=== PATIENT | male | born 1980 | race Hispanic/Latino ===

== ENCOUNTER 2022-10-03 08:07 | Emergency (ER) | payer SELFPAY ==
--- OUTSIDE RECORDS SUMMARY | 2022-10-03 08:10 | XMS REPORT | Continuity of Care Document ---
:1980 Author Organization [facility] t Address [address] [place] [id number] Care Team Providers Name Role Phone Virgil Perry MD Attending Clinician VIRGIL PERRY Attending Clinician Unavailable Problems Condition Condition Condition Status Onset Resolution Last Treating Co mments Source Name Details Category Date Date Treatment Clinician Date No known No known Disease Unive rs active active ity of problems problems [facility] Allergies, Adverse Reactions, Alerts Allergy Allergy Status Severity Reaction(s) Onset Inactive Treating Comm ents Source Name Type Date Date Clinician NO KNOWN Drug Active Univers ALLERGIE Class ity of S [facility] Social History Social Habit Start Date Stop Date Quantity Comments Source Sex Assigned At Uni versity [facility] Exposure to SARS-CoV-2 Not sure [facility] [place] (event) [facility] Smoking Status Start Date Stop Date Source Unknown if ever smoked Universit y [facility] Medications Ordered Filled Start Stop Current Ordering Indication Dosage Frequency Signature Comments Components Source Medication Medication Date Date Medication? Clinician (SIG) Name Name ondansetron 2019-05 2020- No 4mg 4 mg, Slow Univers (ZOFRAN 002-27 IV Push, ity of (PF)) 05:30: 04:27 ONCE, 1 [place] injection 4 00 :00 dose, Fri Med ical mg 02/28/20 at [facility] 0030, ZEENAT morpHINE 2019-05 2020- No 4mg 4 mg, Slow Un miriam injection 4 0-02 - IV Push, ity of mg 05:30: 04:27 ONCE, 1 [place] 00 :00 dose, Fri Medical 02/28/20 at [facility] 0030, STAT iohexol 2019-05 2020- No 100mL 100 mL, Unive rs (OMNIPAQUE 0-02 10- Intravenou it y of 350 05:17: 05:17 s, ONCE, 1 BULK-100 00 :00 dose, Fri Medica l mL) 02/28/20 at [facility] injection 0030, 100 mL Routine NaCl 0.9% 2019-05 1000mL at 999 Uni vers (NS) bolus 0-02 10-02 mL/hr, ity of infusion 04:30: 06:04 1,000 mL, Himanshu as 1,000 mL 00 :00 IV Medical Infusion, [place] ONCE, 1 dose, Yamilka 02/27/20 at 2330, ZEENAT ciprofloxac 2019-05 Yes [id number] 500mg Take 1 Univers in HCl 500 0-02 tablet by ity of mg tablet 00:00: mouth 2 00 (two) Medical times [place] daily. Vital Signs Vital Name Observation Time Observation Value Comments Source Systolic blood 2020-02-28 06:06:42 146 mm[Hg] [facility] Diastolic blood 2020-02-28 06:06:42 99 mm[Hg] [facility] Heart rate 2020-02-28 06:06:42 94 /min [facility] Respiratory rate 2020-02-28 06:06:42 20 /min [facility] Oxygen saturation in 2020-02-28 06:06:42 98 /min [facility] Arterial blood by [facility] Pulse oximetry [place] Body temperature 2020-02-28 03:57:00 37.28 Neelam [facility] Body weight 2020-02-28 03:57:00 72.2 kg [facility] Procedures Procedure Date / Time Performed Performing Clinician Sour e CT ABDOMEN PELVIS W 2020-02-28 05:19:00 Virgil Perry [facility] CONTRAST [facility] LIPASE 2020-02-28 04:27:[address] [facility] HEPATIC FUNCTION 2020-02-28 04:27:00 Lorri [facility] PANEL ([id number]) [facility] (ALB,T.PRO,BILI T,BU/BC,ALT,AST,ALK PHOS) BASIC METABOLIC PANEL 2020-02-28 04:27:00 Virgil Perry [facility] (NA, K, CL, CO2, Medical Branch GLUCOSE, BUN, CREATININE, CA) CBC WITH DIFF 2020-02-28 04:26:[address] [facility] Encounters Start End Encounter Admission Attending Care Care Encounter Source Date/Time Date/Time Type Type Clinicians Facility Department ID 2020-02-27 2020-02-28 Emergency Lorri, TRAUMA [id number] Univers 22:58:00 01:15:00 [facility] [id number] it y of [id number] [place] m[place] [id number] [address] 2020-02-27 2020-02-27 Emergency X LORRI [facility] ERT [id number] Univers 22:58:00 22:58:00 [facility] Results Test Description Test Time Test Comments Results Result Comments Source Basic Metabolic Panel (NA, K, CL, CO2, GLUCOSE, BUN, 2020-02 04:50:00 CREATININE, CA) Test Item Value Reference Range Interpretation Comme nts NA (test code = 2959142898) 140 mmol/L 135-145 K (test code = 2274857333) 3.7 mmol/L 3.5-5 CL (test code = 3382818521) 103 mmol/L 98-108 CO2 TOTAL (test code = 4775927165) 22 mmol/L 23-31 L AGAP (test code = 7893869171) 2-16 BUN (test code = 9407201808) 11 mg/dL 7-23 GLUCOSE (test code = 1933284119) 143 mg/dL 70-110 H CREATININE (test code = 0.63 mg/dL 0.6-1.25 9501899140) CALCIUM (test code = 9761822658) 9.2 mg/dL 8.6-10.6 eGFR Calculation (Non- mL/min/1.73m2 Bangladeshi) (test code = 2029975033) eGFR Calculation ( mL/min/1.73m2 Bangladeshi) (test code = 1894009817) ARIANA (test code = ARIANA) Association of Glomerular Filtration Rate (GFR) and Staging of Kidney Disease* + +-------- + ------+| GFR (mL/min/1.73 m2) ?| With Kidney Damage ?| ?Without Kidney Damage+ +-- + +| ?>90 ?| ?Stage one ?| ? Normal ?+ +------- + -------+| ?60-89 ?| ?Stage two ?| ? Decreased GFR ? + +-------- + ------+| ?30-59 ?| ?Stage three ?| ? Stage three ? + +-------- + ------+| ?15-29 ?| ?Stage four ? | ? Stage four ?+ +------- + -------+| ?<15 (or dialysis) ? ?| ?Stage five ? | ? Stage five ?+ +------- + -------+ *Each stage assumes the associated GFR level has been in effect for at least three months. ?Stages 1 to 5, with or without kidney disease, indicate chronic kidney disease. Notes: Determination of stages one and two (with eGFR >59mL/min/1.73 m2) requires estimation of kidney damage for at least three months as defined by structural or functional abnormalities of the kidney, manifested by either:Pathological abnormalities or Markers of kidney damage (including abnormalities in the composition of the blood or urine or abnormalities in imaging tests). Lab Interpretation (test code = Abnormal 20694-1) [facility] (ALB, T.PRO, BILI T, BU/BC, ALT, AST, ALK PHOS)2020-02-28 04:50:00 Test Item Value Reference Range Interpretation Comments TOTAL BILI (test code = 7809622934) 0.5 mg/dL 0.1-1.1 BILI UNCON (test code = 0421864385) 0.5 mg/dL 0.1-1.1 BILI CONJ (test code = 0369496249) 0.0 mg/dL 0-0.3 T PROTEIN (test code = 7793195236) 8.3 g/dL 6.3-8.2 H ALBUMIN (test code = 6268558678) 4.9 g/dL 3.5-5 ALK PHOS (test code = 5581388520) 81 U/L 34-122 ALTv (test code = 1742-6) 85 U/L 5-50 H AST(SGOT) (test code = 5954090962) 79 U/L 13-40 H Lab Interpretation (test code = Abnormal 55476-8) [facility] [id number] 04:50:00 Test Item Value Reference Range Interpretation Comments LIPASE (test code = 7667358453) 56 U/L 0-220 Lab Interpretation (test code = Normal 75882-0) [facility] with [id number] 04:36:00 Test Item Value Reference Range Interpretation Comments WBC (test code = See_Comment [Automated 6690-2) message] The sy stem which generated this result transmitted reference range : 4.20 - 10.70 10*3/?L. The reference range was not used to interpret this result as normal/abnormal . RBC (test code = See_Comment [Automated 789-8) message] The sy stem which generated this result transmitted reference range : 4.26 - 5.52 10*6/?L. The reference range was not used to interpret this result as normal/abnormal . HGB (test code = 15.7 g/dL 12.2-16.4 718-7) HCT (test code = 44.2 % 38.4-49.3 4544-3) MCV (test code = 90.2 fL 81.7-95.6 787-2) MCH (test code = 32.0 pg 26.1-32.7 785-6) MCHC (test code = 35.5 g/dL 31.2-35 H 786-4) RDW-SD (test code = 40.3 fL 38.5-51.6 22630-1) RDW-CV (test code = 12.2 % 12.1-15.4 788-0) PLT (test code = See_Comment [Automated 777-3) message] The sy stem which generated this result transmitted reference range : 150 - 328 10*3/ ?L. The reference r linnea was not used to interpret this result as normal/abnormal . MPV (test code = 10.5 fL 9.8-13 59635-8) NRBC/100 WBC (test See_Comment [Automat ed code = 9532869561) message] The system which generated this result transmitted reference range : 0.0 - 10.0 /100 WBCs. The refer ence range was not u sed to interpret th is result as normal/abnormal . NRBC x10^3 (test code <0.01 See_Comment [Auto mated = 1149795466) message] The s ystem which generated this result transmitted reference range : 10*3/?L. The reference range was not used to interpret this result as normal/abnormal . GRAN MAT (NEUT) % 50.4 % (test code = 770-8) IMM GRAN % (test code 0.10 % = 2103391118) LYMPH % (test code = 33.7 % 736-9) MONO % (test code = 6.8 % 5905-5) EOS % (test code = 8.5 % 713-8) BASO % (test code = 0.5 % 706-2) GRAN MAT x10^3(ANC) 4.16 10*3/uL 1.99-6.95 (test code = 1656280455) IMM GRAN x10^3 (test <0.03 0-0.06 code = 5707949258) LYMPH x10^3 (test code 2.78 10*3/uL 1.09-3.23 = 731-0) MONO x10^3 (test code 0.56 10*3/uL 0.36-1.02 = 742-7) EOS x10^3 (test code = 0.70 10*3/uL 0.06-0.53 H 711-2) BASO x10^3 (test code 0.04 10*3/uL 0.01-0.09 = 704-7) Lab Interpretation Abnormal (test code = 54778-6) [facility]"
[2022-10-03] MEDS ORDERED: Ringers Lactate 1,000 ML IV ONE (08:39)
[2022-10-03] MEDS ORDERED: ONDANSETRON 4 MG/2 ML VIAL ONE (08:39)
[2022-10-03] MEDS ORDERED: MECLIZINE HCL 12.5 MG TAB ONE (08:39)
[2022-10-03 08:55] LABS: Absolute Lymphocytes (CBC) 1.4 K/uL (0.7-4.9); Hematocrit 47.3 % (39.6-49.0); Lymphocytes % 25.1 % (15.3-44.8); MCV 89.8 fL (80-100); MPV 8.4 fL (7.6-11.3); RBC Red Blood Cell Count 5.27 M/uL (4.33-5.43)
[2022-10-03 08:58] LABS: Protime INR 1.09
--- NOTE | 2022-10-03 09:07 | RAD REPORT ---
EXAM DESCRIPTION: RAD - Chest Single View - 10/03/2022 8:59 am CLINICAL HISTORY: weakness Chest pain. COMPARISON: No comparisons FINDINGS: Portable technique limits examination quality. The lungs are grossly clear. The heart is normal in size. No displaced fractures. IMPRESSION: No acute intrathoracic process suspected.
--- NOTE | 2022-10-03 09:07 | RAD REPORT ---
EXAM DESCRIPTION: CT - Head Brain Wo Cont - 10/03/2022 8:54 am CLINICAL HISTORY: DIZZINESS Headache, drowsiness COMPARISON: No comparisons TECHNIQUE: All CT scans are performed using dose optimization technique as appropriate and may inclu de automated exposure control or mA/KV adjustment according to patient size. FINDINGS: No intracranial hemorrhage, hydrocephalus or extra-axial fluid collection.No areas of brai n edema or evidence of midline shift. Moderate fluid is seen throughout the paranasal sinuses. The calvarium is intact. IMPRESSION: No acute intracranial abnormality. Moderate paranasal sinusitis.
[2022-10-03 09:35] LABS: Albumin 4.3 g/dL (3.4-5.0); Bilirubin Direct 0.2 mg/dL (0-0.2); Bilirubin Total 0.5 mg/dL (0.2-1.0); Magnesium 1.9 mg/dL (1.6-2.4); Potassium 3.5 mEq/L (3.5-5.1); Protein, Total 8.5 g/dL (6.4-8.2); Troponin High Sensitivity 9.1 pg/mL (<58.9)
--- NOTE | 2022-10-03 11:25 | RAD REPORT ---
EXAM DESCRIPTION: CT - Head angio - 10/03/2022 11:13 am CLINICAL HISTORY: DIZZINESS Headache, drowsiness COMPARISON: Head Brain Wo Cont dated 10/03/2022 TECHNIQUE: CT angiography of the head was performed with MIPs. All CT scans are performed using dose optimization technique as appropriate and may include automated exposure control or mA/KV adjustment according to patient size. FINDINGS: No evidence of large vessel occlusion. No evidence of aneurysm is detected. No flow-limiti ng stenosis or vascular malformation identified. Antegrade flow is seen in the vertebral arteries. The vertebral arteries are codominant. The visualized dural venous sinuses are patent. IMPRESSION: No significant flow abnormality is detected.
--- NOTE | 2022-10-03 11:29 | RAD REPORT ---
EXAM DESCRIPTION: CTAbdomen Pelvis W Contrast - 10/03/2022 11:13 am CLINICAL HISTORY: Abdominal pain. abnormal lfts COMPARISON: No comparisons TECHNIQUE: Biphasic CT imaging of the abdomen and pelvis was performed with 100 ml non-ionic IV cont rast. All CT scans are performed using dose optimization technique as appropriate and may include automated exposure control or mA/KV adjustment according to patient size. FINDINGS: The lung bases are clear. The liver demonstrates diffuse fatty infiltration. The spleen, pancreas, adrenal glands and kidneys a re within normal limits. No bowel obstruction, free air, free fluid or abscess. The appendix is normal. No evidence of signi ficant lymphadenopathy. No suspicious bony findings. IMPRESSION: No acute intra-abdominal or pelvic finding. Mild diffuse fatty liver.
--- NOTE | 2022-10-03 11:34 | RAD REPORT ---
EXAM DESCRIPTION: CT - Neck Angio - 10/03/2022 11:14 am CLINICAL HISTORY: dizziness Headache, drowsiness COMPARISON: No comparisons TECHNIQUE: CT angiography of the neck vessels was performed with MIPs. All CT scans are performed using dose optimization technique as appropriate and may include automated exposure control or mA/KV adjustment according to patient size. FINDINGS: A left aortic arch is identified with normal three vessel configuration of the great vesse ls. No significant flow abnormality is seen of the common carotid bilaterally. No significant stenosis is identified involving the cervical segments of both internal carotid arteri es. Normal flow is seen within both vertebral arteries. IMPRESSION: No significant flow abnormality of the neck vessels is identified. NASCET criteria used. Mild 0-49% stenosis Moderate 50-69% stenosis Severe 70-99% stenosis
--- NOTE | 2022-10-03 12:11 | EDPHYS ---
Physician Documentation [facility] Name: Jamil Moss Age: 42 yrs Sex: Male : 1980 Arrival Date: 10/03/2022 Time: 08:07 Bed 7 Private MD: ED Physician Luis Drew HPI: 10/03 08:21 This 42 yrs old Male presents to ER via Ambulatory with complaints of jmm Nausea/Vomiting, Blurred Vision, General Weakness, High Blood Pressure. 08:21 The patient presents to the emergency department with nausea. Onset: The jmm symptoms/episode began/occurred gradually, 4 day(s) ago. Possible causes: unknown. This is a 42 year old male with a history of htn that presents to the ED with complaints of weakness, dizziness, blurred vision, beginning approx 4 days ago. Symptoms have been constant. Denies similar episodes in the past. Also complains of high blood pressure, has not taken his medication in 6 months. States he drinks approx 5 to 5 beers a day. States he had 3 yesterday. . Historical: - Allergies: 08:21 No Known Allergies; ap3 - Home Meds: 08:20 None [Active]; ap3 - PMHx: 08:20 Hypertensive disorder; ap3 - Immunization history:: Client reports having NOT received the Covid vaccine. - Social history:: Patient uses alcohol, on a daily basis. admits to "couple of beers" a day. Smoking status: Patient reports the use of cigarette tobacco products, denies chronic smoking, but will smoke occasionally. ROS: 08:21 Cardiovascular: Negative for chest pain, palpitations, and edema, Respiratory: Negative jmm for shortness of breath, cough, wheezing, and pleuritic chest pain. 08:21 Constitutional: Positive for fatigue. 08:21 Abdomen/GI: Positive for nausea. 08:21 Neuro: Positive for dizziness, near syncope. 08:21 All other systems are negative. Exam: 08:21 Head/Face: atraumatic. jmm 08:21 ENT: Moist Mucus Membranes Neck: Trachea midline, Supple Chest/axilla: Normal chest wall appearance and motion. Cardiovascular: Regular rate and rhythm. No edema appreciated Respiratory: Normal respirations, no respiratory distress appreciated Abdomen/GI: Non distended Back: Normal ROM Skin: General appearance color normal MS/ Extremity: Moves all extremities, no obvious deformities appreciated, no edema noted to the lower extremities 08:21 Constitutional: The patient appears alert, awake, uncomfortable. 08:21 Eyes: Nystagmus: horizontal nystagmus. 08:21 Neuro: Orientation: is normal, Mentation: is normal, Memory: is normal, Cerebellar function: normal finger to nose testing. 08:21 Psych: Behavior/mood is pleasant, cooperative. Vital Signs: 08:16 BP 155 / 105; Pulse 100; Resp 19; Temp 98.2(O); Pulse Ox 98% on R/A; ap3 08:21 Weight 79.38 kg; Height 5 ft. 9 in. ; ap3 10:00 BP 159 / 98; Pulse 68; Resp 16; Pulse Ox 100% ; bp 11:00 BP 145 / 78; Pulse 80; Resp 16; Pulse Ox 99% ; bp 08:21 Body Mass Index 25.84 (79.38 kg, 175.26 cm) ap3 MDM: 08:25 Patient medically screened. jose m 12:18 Differential diagnosis: vertigo, cva, viral syndrome, hypoglycemia, hyperglycemia. Data tesha reviewed: vital signs, nurses notes, lab test result(s), radiologic studies, CT scan. Consideration of Admission/Observation. I considered the following discharge prescriptions or medication management in the emergency department Medications were administered in the Emergency Department. See MAR. Test considered but Not performed: MRI: Symptoms have resolved. Counseling: I had a detailed discussion with the patient and/or guardian regarding: the historical points, exam findings, and any diagnostic results supporting the discharge/admit diagnosis, lab results, radiology results, the need for outpatient follow up, to return to the emergency department if symptoms worsen or persist or if there are any questions or concerns that arise at home. ED course: Patient states feeling much better. Advised to follow up with GI for further evaluation. Otherwise advised to discontinue drinking. Given strict return precautions. Patient understood and agrees with the plan of care. . 10/03 08:21 Order name: Basic Metabolic Panel; Complete Time: 09:36 [facility] 10/03 08:21 Order name: CBC with Diff; Complete Time: 08:56 [facility] 10/03 08:21 Order name: LFT's; Complete Time: 09:36 [facility] 10/03 08:21 Order name: Magnesium; Complete Time: 09:36 [facility] 10/03 08:21 Order name: NT PRO-BNP; Complete Time: 09:36 [facility] 10/03 08:21 Order name: PT-INR; Complete Time: 09:01 [facility] 10/03 08:21 Order name: Troponin HS; Complete Time: 09:36 [facility] 10/03 08:39 Order name: ETOH Level; Complete Time: 09:31 [facility] 10/03 08:21 Order name: XRAY Chest (1 view); Complete Time: 09:08 [facility] 10/03 08:21 Order name: CT Head Brain wo Cont; Complete Time: 09:08 [facility] 10/03 10:53 Order name: CT Head Angio; Complete Time: 11:26 [facility] 10/03 10:53 Order name: CT Neck Angio; Complete Time: 11:38 [facility] 10/03 10:53 Order name: CT Abd/Pelvis - IV Contrast Only; Complete Time: 11:30 [facility] 10/03 08:21 Order name: EKG; Complete Time: 08:22 [facility] 10/03 08:21 Order name: Cardiac monitoring; Complete Time: 08:28 [facility] 10/03 08:21 Order name: EKG - Nurse/Tech; Complete Time: 08:28 [facility] 10/03 08:21 Order name: IV Saline Lock; Complete Time: 09:00 [facility] 10/03 08:21 Order name: Labs collected and sent; Complete Time: 09:00 [facility] 10/03 08:21 Order name: O2 Per Protocol; Complete Time: 08:28 [facility] 10/03 08:21 Order name: O2 Sat Monitoring; Complete Time: 08:28 [facility] Administered Medications: 08:45 Drug: Ondansetron IVP 4 mg Route: IVP; Site: right forearm; bp 08:45 Drug: Meclizine PO 50 mg Route: PO; bp 08:59 Drug: Lactated Ringers Solution IV 1000 ml Route: IV; Rate: 1000 bolus; Site: right bp forearm; Disposition: 14:13 Co-signature as Attending Physician, Luis Drew MD I agree with the assessment and kdr plan of care. Disposition Summary: 10/03/22 12:11 Discharge Ordered Location: Home [facility] Condition: Stable [facility] Diagnosis - Other peripheral vertigo [facility] Followup: [facility] - With: Ye Glover MD - When: 2 - 3 days - Reason: Recheck today's complaints, Continuance of care, Re-evaluation by your physician Discharge Instructions: - Discharge Summary Sheet jmm - Vertigo jmm - Fatty Liver Disease [facility] Forms: - Medication Reconciliation Form jose m - Thank You Letter rolando - Antibiotic Education jmjose m - Prescription Opioid Use [facility] Prescriptions: - Meclizine 25 mg Oral Tablet - take 1 tablet by ORAL route every 8 hours As needed; 30 tablet; Refills: 0, jmm Product Selection Permitted Signatures: Dispatcher [employer] Luis Lopez MD MD kdr Mickail, Joel, PA PA jmm Peltier, Brian, RN RN bp Morena Barajas RN RN ap3
--- NOTE | 2022-10-03 12:11 | ER ---
Nurse's Notes [facility] Name: Jamil Moss Age: 42 yrs Sex: Male : 1980 Arrival Date: 10/03/2022 Time: 08:07 Bed 7 Private MD: Diagnosis: Other peripheral vertigo Presentation: 10/03 08:16 Chief complaint: Patient states: he feels very shaky and dizzy, and his vision is ap3 blurry with high blood pressure. patient states he has been feeling this way since of last week 09/29/2022. Coronavirus screen: At this time, the client does not indicate any symptoms associated with coronavirus-19. Ebola Screen: No symptoms or risks identified at this time. Initial Sepsis Screen: Does the patient meet any 2 criteria? HR > 90 bpm. Does the patient have a suspected source of infection? No. Patient's initial sepsis screen is negative. Risk Assessment: Do you want to hurt yourself or someone else? Patient reports no desire to harm self or others. Onset of symptoms was September 29, 2022. 08:16 Method Of Arrival: Ambulatory ap3 08:16 Acuity: SAM 3 ap3 Triage Assessment: 08:20 General: Appears ill, Behavior is calm, cooperative, appropriate for age. Pain: Denies ap3 pain. Neuro: Reports dizziness, weakness. Cardiovascular: Patient's skin is warm and dry. Respiratory: Airway is patent Respiratory effort is even, unlabored, Respiratory pattern is regular, symmetrical. GI: Reports nausea, vomiting. Historical: - Allergies: 08:21 No Known Allergies; ap3 - Home Meds: 08:20 None [Active]; ap3 - PMHx: 08:20 Hypertensive disorder; ap3 - Immunization history:: Client reports having NOT received the Covid vaccine. - Social history:: Patient uses alcohol, on a daily basis. admits to "couple of beers" a day. Smoking status: Patient reports the use of cigarette tobacco products, denies chronic smoking, but will smoke occasionally. Screenin:20 [facility] ED Fall Risk Assessment (Adult) History of falling in the last 3 months, bp including since admission No falls in past 3 months (0 pts). 08:21 Abuse screen: Denies threats or abuse. Nutritional screening: Has had N/V for 3 or more ap3 days. Tuberculosis screening: No symptoms or risk factors identified. Assessment: 08:20 General: SEE TRIAGE NOTE. bp 10:00 Reassessment: No changes from previously documented assessment. Patient is alert, bp oriented x 3, equal unlabored respirations, skin warm/dry/pink. 11:00 Reassessment: No changes from previously documented assessment. Patient is alert, bp oriented x 3, equal unlabored respirations, skin warm/dry/pink. Vital Signs: 08:16 BP 155 / 105; Pulse 100; Resp 19; Temp 98.2(O); Pulse Ox 98% on R/A; ap3 08:21 Weight 79.38 kg; Height 5 ft. 9 in. ; ap3 10:00 BP 159 / 98; Pulse 68; Resp 16; Pulse Ox 100% ; bp 11:00 BP 145 / 78; Pulse 80; Resp 16; Pulse Ox 99% ; bp 08:21 Body Mass Index 25.84 (79.38 kg, 175.26 cm) ap3 ED Course: 08:09 Patient arrived in ED. am2 08:10 Judd Oconnell PA is PHCP. [facility] 08:11 Luis Drew MD is Attending Physician. jm 08:11 Judd Oconnell PA is PHCP. [facility] 08:11 Luis Drew MD is Attending Physician. [facility] 08:18 Triage completed. ap3 08:22 Arm band placed on right wrist. ap3 08:22 Patient has correct armband on for positive identification. Bed in low position. Call ap3 light in reach. 08:27 Beau Trujillo, RN is Primary Nurse. bp 08:42 EKG done, by ED staff, reviewed by Judd RICHARDS. em1 08:45 Inserted saline lock: 20 gauge in right forearm, using aseptic technique. bp 08:56 CT Head Brain wo Cont In Process Unspecified. EDMS 09:01 XRAY Chest (1 view) In Process Unspecified. EDMS 11:14 CT Head Angio In Process Unspecified. EDMS 11:14 CT Abd/Pelvis - IV Contrast Only In Process Unspecified. EDMS 11:16 CT Neck Angio In Process Unspecified. EDMS 12:11 Ye Glover MD is Referral Physician. [facility] Administered Medications: 08:45 Drug: Ondansetron IVP 4 mg Route: IVP; Site: right forearm; bp 08:45 Drug: Meclizine PO 50 mg Route: PO; bp 08:59 Drug: Lactated Ringers Solution IV 1000 ml Route: IV; Rate: 1000 bolus; Site: right bp forearm; Medication: 08:20 VIS not applicable for this client. bp Outcome: 12:11 Discharge ordered by MD. marshall 12:49 Patient left the ED. nj1 Signatures: Dispatcher [employer] EDMS Judd Oconnell PA PA jmm Martinez, Eric em1 Morena Phoenix am2 Beau Trujillo, RN RN bp Morena Barajas RN RN ap3 Negar Santamaria RN RN nj1
[2022-10-03 13:09] VITALS: TEMP 98.2
[2022-10-03 13:11] VITALS: BP 145/78; O2SAT 99
--- NOTE | 2022-10-05 16:03 | EKG ---
Test Date: 2022-10-03 Test Time: 08:30:02 Director [employer]: DANICA MEASUREMENT RESULTS: Intervals: Rate: 85 WY: 148 QRSD: 100 QT: 386 QTc: 459 Enterprise: P: 44 WY: 148 QRS: -19 T: 53 INTERPRETIVE STATEMENTS: Normal sinus rhythm Incomplete right bundle branch block Borderline ECG No previous ECG available for comparison Electronically Signed On 10-05-22 15:58:03 CDT by Lopez Mari
== END 2022-10-03 12:49 | disposition home or self-care (01) ==
LOC: ER 08:07
DX: H81.399 Other peripheral vertigo, unspecified ear (principal)
CPT/HCPCS: 36415; 70450; 70496; 70498; 71045; 74177; 80048; 80076; 83735; 83880; 84484; 85025; 85610; 93005; 96374; 99284; G0480; J2405; J7120; J8597